=== PATIENT | male | born 1930 | race Caucasian/White ===

== ENCOUNTER 2021-05-02 13:15 | Inpatient (IN) | payer MEDICARE, BC ==
[2021-05-02] MEDS ORDERED: FLU VACC QS2021-22(65YR UP)/PF 240 MCG/0.7 ML SYRINGE IM ONE (16:30)
[2021-05-02] MEDS ORDERED: traMADol HCl 50 MG TAB PO PRN ×2 (19:44)
[2021-05-02] MEDS ORDERED: Acetaminophen 500 MG TAB PO PRN (19:45)
[2021-05-02] MEDS: Mirtazapine 15 MG TAB PO SCH (21:11)
[2021-05-02] MEDS: Amlodipine 5 MG TAB PO SCH (21:11)
[2021-05-02] MEDS: Apixaban 5 MG TAB PO SCH (21:12)
[2021-05-03 07:53] LABS: SARS-CoV-2 NAA Rapid Test Not Detected (NotDetected)
[2021-05-03] MEDS ORDERED: Losartan Potassium 50 MG TAB PO SCH (09:00)
[2021-05-03] MEDS ORDERED: Losartan 25 MG TAB PO SCH (09:45)
[2021-05-03] MEDS: metFORMIN 500 MG TAB PO SCH ×2 (09:50→17:48)
[2021-05-03] MEDS: Fenofibrate Nanocrystallized 145 MG TAB PO SCH (09:50)
[2021-05-03] MEDS: Docusate 100 MG CAP PO SCH (09:50)
[2021-05-03] MEDS: Torsemide 20 MG TAB PO SCH (09:50)
[2021-05-03] MEDS: Potassium Chloride 20 MEQ TAB PO SCH (09:50)
[2021-05-03] MEDS: Finasteride 5 MG TAB PO SCH (09:50)
[2021-05-03] MEDS: Carvedilol 25 MG TAB PO SCH ×2 (09:50→17:48)
[2021-05-03] MEDS: Tamsulosin HCl 0.4 MG CAP PO SCH (09:51)
[2021-05-03] MEDS: Lidocaine 5% Patch TD SCH (09:51)
[2021-05-03] MEDS: Apixaban 5 MG TAB PO SCH ×2 (09:51→20:51)
[2021-05-03] MEDS ORDERED: Ondansetron PF 4 MG/2 ML Vial IVP PRN (18:50)
[2021-05-03] MEDS ORDERED: Sodium Chloride 0.65% Nasal 44 ML BOT EA NARE PRN (18:50)
[2021-05-03] MEDS ORDERED: Ondansetron ODT 4 MG TAB PO PRN (18:50)
[2021-05-03] MEDS ORDERED: Bisacodyl 10 MG SUPP PR PRN (18:50)
[2021-05-03] MEDS ORDERED: Promethazine HCl 25 MG SUPP PR PRN (18:50)
[2021-05-03] MEDS ORDERED: Guaifenesin DM 100-10/5 ML UDCUP PO PRN (18:50)
[2021-05-03] MEDS ORDERED: Cepastat Lozenges 1 LOZ PO PRN (18:50)
[2021-05-03] MEDS ORDERED: Acetaminophen 650 MG Suppository PR PRN (18:50)
[2021-05-03] MEDS ORDERED: Acetaminophen 325 MG TAB PO PRN (18:50)
[2021-05-03] MEDS ORDERED: Dextrose 50% Abboject 50 ML SYRINGE SLOW IVP PRN (18:50)
[2021-05-03] MEDS ORDERED: Benzonatate 100 MG CAP PO PRN (18:50)
[2021-05-03] MEDS ORDERED: Artificial Tear Sol 15 ML BOT EA EYE PRN (18:50)
[2021-05-03] MEDS ORDERED: Senokot S 8.6-50 MG TAB PO PRN (18:50)
[2021-05-03] MEDS ORDERED: HumaLOG 300 UNITS/3 ML VIAL SC PRN (18:50)
[2021-05-03] MEDS ORDERED: Calcium Carbonate 500 MG ChewTAB PO PRN (18:50)
[2021-05-03] MEDS ORDERED: Bisacodyl 5 MG TAB PO PRN (18:50)
[2021-05-03] MEDS ORDERED: Loperamide HCl 2 MG CAP PO PRN ×2 (18:50)
[2021-05-03] MEDS ORDERED: Ondansetron ODT 4 MG TAB SL PRN (20:30)
[2021-05-03] MEDS: Mirtazapine 15 MG TAB PO SCH (20:51)
[2021-05-03] MEDS: Amlodipine 5 MG TAB PO SCH (20:51)
[2021-05-03] MEDS ORDERED: Atorvastatin Calcium 20 MG TAB PO SCH (21:00)
[2021-05-03] MEDS ORDERED: Transdermal Patch Removal TOP SCH (21:00)
[2021-05-04 07:11] LABS: #Basophils 0.1 thou/uL (0.0-0.2); #Eosinphils 0.2 thou/uL (0.0-0.7); #Lymphocytes 1.6 thou/uL (1.20-3.40); #Monocytes 0.5 thou/uL (0.11-0.59); #Neutrophils 7.1 thou/uL (1.40-6.50); %Basophils 0.8 % (0.0-1.0); %Eosinophils 2.1 % (0.0-10.0); %Lymphocytes 16.6 % (21.0-51.0); %Monocytes 5.3 % (0.0-10.0); %Neutrophils 75.3 % (42.0-75.0); Hemoglobin 15.3 g/dL (14.0-18.0); Mean Corpuscular HGB CONC 32.2 g/dL (32.0-36.0); Mean Corpuscular Hemoglobin 27.6 pg (27.0-31.0); Mean Corpuscular Volume 85.6 fL (78.0-98.0); Mean Platelet Volume 7.3 fL (7.4-10.4); Platelet Count 184 thou/uL (130-400); RBC Distribution Width 13.1 % (11.5-14.5); Red Blood Cell (RBC) Count 5.55 mill/uL (4.70-6.10); White Blood Cell (WBC) Count 9.5 thou/uL (4.8-10.8)
[2021-05-04 07:16] LABS: ALT (SGPT) 13 U/L (8-55); AST (SGOT) 19 U/L (5-34); Albumin 3.1 g/dL (3.4-4.8); Alkaline Phosphatase 156 U/L (40-110); Anion Gap 15 mmol/L (10-20); BUN (Urea Nitrogen) 32 mg/dL (8.4-25.7); Bilirubin, Total 1.2 mg/dL (0.2-1.2); Calc. Creatinine Clearance 67 mL/min (70-130); Calcium 8.7 mg/dL (7.8-10.44); Carbon Dioxide 27 mmol/L (23-31); Chloride 104 mmol/L (98-107); Globulin 2.6 g/dL (2.4-3.5); Glucose 124 mg/dL (83-110); Potassium 3.3 mmol/L (3.5-5.1); Protein, Total 5.7 g/dL (5.8-8.1); Sodium 143 mmol/L (136-145)
[2021-05-04] MEDS: metFORMIN 500 MG TAB PO SCH (08:59)
[2021-05-04] MEDS ORDERED: Losartan 25 MG TAB PO SCH (09:00)
[2021-05-04] MEDS: Fenofibrate Nanocrystallized 145 MG TAB PO SCH (09:03)
[2021-05-04] MEDS: Tamsulosin HCl 0.4 MG CAP PO SCH (09:04)
[2021-05-04] MEDS: Torsemide 20 MG TAB PO SCH (09:04)
[2021-05-04] MEDS: Carvedilol 25 MG TAB PO SCH (09:05)
[2021-05-04] MEDS: Lidocaine 5% Patch TD SCH (09:05)
[2021-05-04] MEDS: Potassium Chloride 20 MEQ TAB PO SCH (09:05)
[2021-05-04] MEDS: Apixaban 5 MG TAB PO SCH (09:10)
[2021-05-04] MEDS: Finasteride 5 MG TAB PO SCH (09:10)
[2021-05-04] MEDS: Docusate 100 MG CAP PO SCH (09:11)
[2021-05-04 10:13] VITALS: TEMP 98.4
[2021-05-04 13:10] VITALS: BP 99/57
== END 2021-05-04 16:57 | disposition short-term general hospital (02) | DRG 948 ==
LOC: NAV ACUTE 15:00
PROVIDERS: ADMIT Family Medicine; ATTEND Family Medicine
DX: R53.1 Weakness (principal); I50.20 Unspecified systolic (congestive) heart failure; Z20.822 Contact with and (suspected) exposure to COVID-19; I48.91 Unspecified atrial fibrillation; N40.0 Benign prostatic hyperplasia without lower urinary tract symptoms; M54.50 Low back pain, unspecified; I25.10 Atherosclerotic heart disease of native coronary artery without angina pectoris; E11.65 Type 2 diabetes mellitus with hyperglycemia; E78.2 Mixed hyperlipidemia; L89.151 Pressure ulcer of sacral region, stage 1; I11.0 Hypertensive heart disease with heart failure; Z95.5 Presence of coronary angioplasty implant and graft; Z79.899 Other long term (current) drug therapy; Z79.84 Long term (current) use of oral hypoglycemic drugs; Z79.891 Long term (current) use of opiate analgesic; Z95.0 Presence of cardiac pacemaker; Z87.891 Personal history of nicotine dependence
CPT/HCPCS: 36416; 71045; 80053; 85025; 90471; 90662; G0008; J1815; U0002

== ENCOUNTER 2021-05-04 14:06 | Emergency (ER) | payer MEDICARE, BC ==
[2021-05-04 14:26] LABS: #Basophils 0.1 thou/uL (0.0-0.2); #Eosinphils 0.1 thou/uL (0.0-0.7); #Lymphocytes 1.3 thou/uL (1.20-3.40); #Monocytes 0.5 thou/uL (0.11-0.59); #Neutrophils 7.3 thou/uL (1.40-6.50); %Basophils 0.7 % (0.0-1.0); %Eosinophils 0.7 % (0.0-10.0); %Lymphocytes 13.9 % (21.0-51.0); %Monocytes 5.5 % (0.0-10.0); %Neutrophils 79.2 % (42.0-75.0); Hemoglobin 14.2 g/dL (14.0-18.0); Mean Corpuscular HGB CONC 32.2 g/dL (32.0-36.0); Mean Corpuscular Hemoglobin 27.8 pg (27.0-31.0); Mean Corpuscular Volume 86.2 fL (78.0-98.0); Mean Platelet Volume 7.6 fL (7.4-10.4); Platelet Count 196 thou/uL (130-400); RBC Distribution Width 13.6 % (11.5-14.5); White Blood Cell (WBC) Count 9.2 thou/uL (4.8-10.8)
[2021-05-04 14:46] LABS: INR-International Normal Ratio 1.9; Prothrombin Time 22.5 sec (12.0-14.7)
[2021-05-04 14:47] LABS: PTT 49.7 sec (22.9-36.1)
[2021-05-04] MEDS ORDERED: Cefepime 2 GM VIAL ONE (14:55)
[2021-05-04] MEDS ORDERED: Sodium Chloride 0.9% 100 ML ONE (14:55)
[2021-05-04] MEDS ORDERED: Sodium Chloride 0.9% 1,000 ML ONE (14:55)
[2021-05-04 14:58] LABS: ALT (SGPT) 13 U/L (8-55); AST (SGOT) 18 U/L (5-34); Alkaline Phosphatase 156 U/L (40-110); Anion Gap 16 mmol/L (10-20); BUN (Urea Nitrogen) 40 mg/dL (8.4-25.7); Calc. Creatinine Clearance 0 mL/min (70-130); Calcium 8.6 mg/dL (7.8-10.44); Carbon Dioxide 26 mmol/L (23-31); Chloride 106 mmol/L (98-107); Globulin 2.6 g/dL (2.4-3.5); Glucose 109 mg/dL (83-110); Potassium 3.6 mmol/L (3.5-5.1); Protein, Total 5.6 g/dL (5.8-8.1); Sodium 144 mmol/L (136-145)
[2021-05-04 15:03] LABS: CKMB 1.6 ng/mL (0-6.6)
[2021-05-04 15:33] LABS: Bilirubin Negative (Negative); Blood, Urine Negative (Negative); Clarity Clear (Clear); Glucose, Urine (Dipstick) Negative (Negative); Ketone, Urine Negative (Negative); Leukocyte Negative (Negative); Nitrite Negative (Negative); Protein, Urine (Dipstick) Negative (Neg-Trace); Urobilinogen 0.2 mg/dL (Less than 2); pH, Urine 5.5 (5.0-9.0)
[2021-05-04] MEDS ORDERED: Sodium Chloride 0.9% 250 ML 250 ML ONE (15:59)
[2021-05-04] MEDS ORDERED: Acetaminophen 325 MG TAB PO PRN (18:15)
[2021-05-04] MEDS ORDERED: Ondansetron ODT 4 MG TAB SL PRN (18:15)
[2021-05-04] MEDS ORDERED: Sodium Chloride 0.9% 1,000 ML IV SCH (18:15)
[2021-05-04] MEDS ORDERED: Ondansetron PF 4 MG/2 ML Vial IVP PRN (18:15)
[2021-05-05] MEDS ORDERED: Cefepime 2 GM in Sodium Chloride 0.9% 100 ML IVPB SCH (03:00)
== END 2021-05-04 16:57 | disposition short-term general hospital (02) ==
LOC: NAV ERS 14:06
DX: A41.9 Sepsis, unspecified organism (principal); R65.21 Severe sepsis with septic shock; J18.9 Pneumonia, unspecified organism; E11.9 Type 2 diabetes mellitus without complications; I10 Essential (primary) hypertension; E78.5 Hyperlipidemia, unspecified; I48.91 Unspecified atrial fibrillation; Z79.01 Long term (current) use of anticoagulants; Z79.84 Long term (current) use of oral hypoglycemic drugs; Z79.899 Other long term (current) drug therapy; Z86.73 Personal history of transient ischemic attack (TIA), and cerebral infarction without residual deficits
CPT/HCPCS: 70450; 81003; 82553; 83605; 84484; 85610; 85730; 87040; 94760; 96365; 96367; J0692; J3370; J3490; J7050